=== PATIENT | female | born 1965 | race Caucasian/White ===

== ENCOUNTER 2017-10-08 20:36 | Observation (INO) | payer BC ==
[2017-10-08] MEDS ORDERED: ASPIRIN 81 MG PO STA (20:57)
--- NOTE | 2017-10-08 21:21 | ED ---
Chest Pain HPI - General Chief Complaint: Chest Pain Stated Complaint: HTN, Chest Pain Time Seen by Provider: 10/08/17 20:48 Source: patient, RN notes reviewed Mode of arrival: wheelchair Limitations: no limitations - History of Present Illness Initial Comments: This a 52-year-old female presents emergency Department chief complaint of left- sided chest discomfort, hypertension. 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 Patient states that she was then written a prescription for carotid duplex. She states that she went to have a yesterday was found to be hypertensive. Patient was given a prescription for Norvasc 5 mg twice a day. She states 3 doses so far. Patient states her blood pressure still elevated. Patient states that she was a former smoker denies any known history of hyperlipidemia, diabetes. Patient states that her chest just feels "funny". Patient states that she's never had a stress test in the past. She does not know the results of her carotid duplex. She denies any shortness of breath at times. She did admit that she was just unsure of [place] for skiing and this returned. She has no prior history of DVT or PE. - Related Data Home Medications Medication Instructions Recorded Confirmed amLODIPine [Norvasc] 5 mg PO BID 10/08/17 10/08/17 Allergies Allergy/AdvReac Type Severity Reaction Status Date / Time No Known Allergies Allergy Verified 10/08/17 21:56 Review of Systems ROS Statement: Those systems with pertinent positive or pertinent negative responses have been documented in the HPI. ROS Other: All systems not noted in ROS Statement are negative. EKG Findings - EKG Comments: EKG Findings:: EKG performed at 21:12 normal sinus rhythm with rate of 67 MA 172 QRS 92/QTc/431 Past Medical History Past Medical History: Hypertension History of Any Multi-Drug Resistant Organisms: None Reported Past Surgical History: No Surgical Hx Reported Past Psychological History: No Psychological Hx Reported Smoking Status: Former smoker Past Alcohol Use History: Occasional Past Drug Use History: Marijuana General Exam Limitations: no limitations General appearance: alert, in no apparent distress Neck exam: Present: normal inspection, full ROM. Absent: tenderness, meningismus, lymphadenopathy Respiratory exam: Present: normal lung sounds bilaterally. Absent: respiratory distress, wheezes, rales, rhonchi, stridor, chest wall tenderness Cardiovascular Exam: Present: regular rate, normal rhythm, normal heart sounds. Absent: systolic murmur, diastolic murmur, rubs, gallop, clicks GI/Abdominal exam: Present: soft, normal bowel sounds. Absent: distended, tenderness, guarding, rebound, rigid Neurological exam: Present: alert, oriented X3, CN II-XII intact, reflexes normal. Absent: motor sensory deficit Course Vital Signs 10/08/17 20:40 Temperature 98.5 F Pulse Rate 80 Respiratory 18 Rate Blood Pressure 175/89 O2 Sat by Pulse 98 Oximetry Disposition Clinical Impression: Chest pain Disposition: ADMITTED IP TO THIS HOSP Condition: Stable Referrals: None,Stated [Primary Care Provider] - 1-2 days
[2017-10-08 21:25] LABS: Basophils % (A) 1 %; Eosinophils # (A) 0.1 k/uL (0-0.7); Eosinophils % (A) 2 %; HCT 41.9 % (34.0-46.0); HGB 13.5 gm/dL (11.4-16.0); Lymphocytes # (A) 1.5 k/uL (1.0-4.8); Lymphocytes % (A) 30 %; MCH 28.8 pg (25.0-35.0); MCHC 32.1 g/dL (31.0-37.0); MCV 89.5 fL (80.0-100.0); Mean Platelet Volume 6.7; Monocytes # (A) 0.4 k/uL (0-1.0); Monocytes % (A) 8 %; Neutrophils # (A) 2.8 k/uL (1.3-7.7); Neutrophils % (A) 57 %; Platelet Count 240 k/uL (150-450); RBC 4.68 m/uL (3.80-5.40); RDW 12.8 % (11.5-15.5); WBC 4.9 k/uL (3.8-10.6)
[2017-10-08 21:29] LABS: ALT 25 U/L (9-52); AST 29 U/L (14-36); Alkaline Phosphatase 66 U/L (38-126); Anion Gap 15 mmol/L; Blood Urea Nitrogen 12 mg/dL (7-17); Calcium 10.1 mg/dL (8.4-10.2); Carbon Dioxide 23 mmol/L (22-30); Chloride 104 mmol/L (98-107); Glucose 102 mg/dL (74-99); Lipase 118 U/L (23-300); Sodium 142 mmol/L (137-145); Total Bilirubin 0.6 mg/dL (0.2-1.3); Total Protein 8.2 g/dL (6.3-8.2)
--- NOTE | 2017-10-08 21:33 | XR ---
EXAMINATION TYPE: XR chest 2V DATE OF EXAM: 10/08/2017 COMPARISON: NONE HISTORY: Chest pain and hypertension TECHNIQUE: Frontal and lateral views of the chest are obtained. FINDINGS: There is no focal air space opacity, pleural effusion, or pneumothorax seen. The cardiac silhouette size is within normal limits. The osseous structures are intact. IMPRESSION: No acute cardiopulmonary process.
[2017-10-08 21:34] LABS: D-Dimer <0.17 mg/L FEU (<0.60); INR 1.1 (<1.2); Partial Thromboplastin Time 24.4 sec (22.0-30.0); Prothrombin Time 10.7 sec (9.0-12.0)
[2017-10-08 21:37] LABS: Creatine Kinase 79 U/L (30-135)
[2017-10-08 21:51] LABS: Creatine Kinase MB 0.8 ng/mL (0.0-2.4); Troponin I <0.012 ng/mL (0.000-0.034)
[2017-10-08] MEDS ORDERED: HEPARIN SODIUM,PORCINE 5,000 UNIT/ML 1 ML VIAL IV ONE (22:10)
[2017-10-08] MEDS ORDERED: NITROGLYCERIN SL TABS 0.4 MG TAB SUBLINGUAL PRN (22:10)
[2017-10-08] MEDS ORDERED: HEPARIN SOD,PORK IN 0.45% NACL 25,000 UNIT in 0.45% NACL 1 500ML.BAG IV SCH (22:15)
[2017-10-08] MEDS ORDERED: SODIUM CHLORIDE 0.9% 500 ML IV SCH (23:15)
[2017-10-08] MEDS ORDERED: ALPRAZolam 0.25 MG TAB PO PRN (23:57)
[2017-10-08] MEDS ORDERED: TEMAZEPAM 15 MG CAP PO PRN (23:57)
[2017-10-09 00:15] VITALS: RESP 16
[2017-10-09 04:32] LABS: Basophils % (A) 1 %; Eosinophils # (A) 0.1 k/uL (0-0.7); Eosinophils % (A) 3 %; HCT 40.2 % (34.0-46.0); HGB 12.8 gm/dL (11.4-16.0); Lymphocytes # (A) 1.6 k/uL (1.0-4.8); Lymphocytes % (A) 34 %; MCH 28.7 pg (25.0-35.0); MCHC 31.8 g/dL (31.0-37.0); MCV 90.3 fL (80.0-100.0); Mean Platelet Volume 6.5; Monocytes # (A) 0.4 k/uL (0-1.0); Monocytes % (A) 8 %; Neutrophils # (A) 2.5 k/uL (1.3-7.7); Neutrophils % (A) 52 %; Platelet Count 228 k/uL (150-450); RBC 4.46 m/uL (3.80-5.40); RDW 12.8 % (11.5-15.5); WBC 4.7 k/uL (3.8-10.6)
[2017-10-09 05:11] LABS: Creatine Kinase 61 U/L (30-135)
[2017-10-09 05:23] LABS: Creatine Kinase MB 0.5 ng/mL (0.0-2.4); Troponin I <0.012 ng/mL (0.000-0.034)
--- NOTE | 2017-10-09 05:45 | HP ---
HISTORY AND PHYSICAL CHIEF COMPLAINT: Chest pain. HISTORY OF PRESENT ILLNESS: This 52-year-old woman with a past medical history of recently diagnosed hypertension, not being followed by primary physician in the outpatient setting was seen in her father's cardiology office. The patient was given a prescription of Norvasc. Patient also got a carotid ultrasound done. Today, the patient is complaining of epigastric burning pain subsequently a chest discomfort which was felt in the anterior part of chest, mild to moderate intensity, which radiated to the back and patient came to [facility] and admitted for further evaluation and treatment. There is no history of any fever, rigors. No history of headache, loss of consciousness or seizures. PAST MEDICAL HISTORY: Hypertension, history nicotine dependence. MEDICATIONS: Norvasc 5 mg p.o. b.i.d. ALLERGIES: Allergies are none. FAMILY HISTORY: History of coronary artery disease in the family. SOCIAL HISTORY: Previous history of smoking. No history of alcohol intake. REVIEW OF SYSTEMS: ENT: No diminished hearing or diminished vision. CARDIOVASCULAR SYSTEM: No angina. RESPIRATORY SYSTEM: No cough or hemoptysis. GI: No nausea. : No dysuria. NERVOUS SYSTEM: No numbness or weakness. ALLERGY/IMMUNOLOGY: No asthma or hay fever. MUSCULOSKELETAL: As mentioned earlier. HEMATOLOGY/ONCOLOGY: No history anemia, ENDOCRINE: No history of diabetes or hypothyroidism. CONSTITUTIONAL: As mentioned earlier. DERMATOLOGY: Negative. RHEUMATOLOGY: Negative. PSYCHIATRY: As mentioned earlier. PHYSICAL EXAMINATION: The patient is alert and oriented x3. Pulse is 58. Blood pressure 147/82, respiration 18, temperature 98.5, pulse ox 99% on 2 L. HEENT: Conjunctivae normal. Oral mucosa moist. Neck is no jugular venous distention. No carotid bruit. No lymph node enlargement. CARDIOVASCULAR: S1 and S2 muffled. No S3, no S4. RESPIRATORY: Breath sounds diminished at the bases. A few scattered rhonchi. No crackles. ABDOMEN: Soft, nontender. No mass palpable. LEGS: No edema, no swelling. NERVOUS SYSTEM: Higher functions as mentioned earlier. Moves all 4 limbs. No focal motor or sensory deficits LYMPHATICS: No lymphadenopathy of the neck, axillae or groin. SKIN: No ulcer, rash or bleeding. LABS: CBC within normal limits otherwise glucose 102. ASSESSMENT: 1. Chest pain, possible unstable angina. 2. Hypertension. 3. THC. 4. History of nicotine dependence. RECOMMENDATIONS AND DISCUSSION: In this 52-year-old woman who presented with multiple complex medical issues, will monitor the patient closely, unstable angina protocol. Otherwise, I recommend a cardiology consultation, possible stress test, rule out myocardial infarction. Continue with Norvasc. Monitor blood pressure closely. Otherwise prognosis guarded because of multiple complex medical issues and further recommendations to follow. Discussed with patient, understands and agrees. MMODL / IJN: [id number] /
[2017-10-09 05:59] LABS: Anion Gap 11 mmol/L; Blood Urea Nitrogen 12 mg/dL (7-17); Calcium 9.9 mg/dL (8.4-10.2); Carbon Dioxide 24 mmol/L (22-30); Chloride 104 mmol/L (98-107); Glucose 98 mg/dL (74-99); HDL Cholesterol 81 mg/dL (40-60); Potassium 3.8 mmol/L (3.5-5.1); Sodium 139 mmol/L (137-145); Triglycerides 155 mg/dL (<150)
[2017-10-09 06:05] LABS: Cholesterol 337 mg/dL (<200); LDL Cholesterol,Calculated 225 mg/dL (0-99)
[2017-10-09] MEDS ORDERED: PANTOPRAZOLE 40 MG TABLET PO SCH (07:30)
[2017-10-09] MEDS ORDERED: ASPIRIN 325 MG TAB PO SCH (09:00)
[2017-10-09] MEDS ORDERED: amLODIPine 5 MG TAB PO SCH (09:00)
[2017-10-09] MEDS ORDERED: ASPIRIN 81 MG PO SCH (09:00)
--- NOTE | 2017-10-09 09:59 | ECHOF ---
Referral Reason:chest pain MEASUREMENTS -------- HEIGHT: 160.0 cm WEIGHT: 54.9 kg BP: 132/69 RVIDd: 3.1 cm (< 3.3) IVSd: 1.1 cm (0.6 - 1.1) LVIDd: 4.4 cm (3.9 - 5.3) LVPWd: 1.0 cm (0.6 - 1.1) IVSs: 1.5 cm LVIDs: 2.8 cm LVPWs: 1.4 cm LA Diam: 3.3 cm (2.7 - 3.8) LAESV Index (A-L): 17.30 ml/m Ao Diam: 3.4 cm (2.0 - 3.7) AV Cusp: 1.9 cm (1.5 - 2.6) MV EXCURSION: 17.614 mm (> 18.000) MV EF SLOPE: 62 mm/s (70 - 150) EPSS: 0.6 cm MV E Rodo: 0.91 m/s MV DecT: 237 ms MV A Rodo: 0.70 m/s MV E/A Ratio: 1.30 FINDINGS -------- Sinus rhythm. This was a technically adequate study. The left ventricular size is normal. There is borderline concentric left ventricular hypertrophy. Overall left ventricular systolic function is normal with, an EF between 55 - 60 %. The right ventricle is normal in size. Normal LA size by volume 22+/-6 ml/m2. The right atrium is normal in size. There is mild aortic valve sclerosis. The mitral valve leaflets are mildly thickened. The tricuspid valve appears structurally normal. There is no pulmonic regurgitation present. The aortic root size is normal. Normal inferior vena cava with normal inspiratory collapse consistent with estimated right atrial pre ssure of 5 mmHg. There is no pericardial effusion. CONCLUSIONS -------- 1. Sinus rhythm. 2. This was a technically adequate study. 3. The left ventricular size is normal. 4. There is borderline concentric left ventricular hypertrophy. 5. Overall left ventricular systolic function is normal with, an EF between 55 - 60 %. 6. The right ventricle is normal in size. 7. Normal LA size by volume 22+/-6 ml/m2. 8. The right atrium is normal in size. 9. There is mild aortic valve sclerosis. 10. The mitral valve leaflets are mildly thickened. 11. The tricuspid valve appears structurally normal. 12. There is no pulmonic regurgitation present. 13. The aortic root size is normal. 14. Normal inferior vena cava with normal inspiratory collapse consistent with estimated right atrial pressure of 5 mmHg. 15. There is no pericardial effusion. PHLEBOTOMY SERVICES REPRESENTATIVE: Macey Lehman RDCS
[2017-10-09 10:28] LABS: Creatine Kinase 60 U/L (30-135)
[2017-10-09 10:41] LABS: Creatine Kinase MB 0.4 ng/mL (0.0-2.4); Troponin I <0.012 ng/mL (0.000-0.034)
[2017-10-09] MEDS ORDERED: ACETAMINOPHEN TAB 325 MG TAB PO PRN (15:41)
[2017-10-09 16:28] VITALS: BP 116/69; PULSE 65; TEMP 97.1
--- NOTE | 2017-10-09 19:01 | CONS ---
CONSULTATION This is a 52-year-old lady with a diagnosis of hypertension. Apparently, this was recently diagnosed. She actually came into the office with her father, who happens to be a patient of mine and was found to have elevated blood pressure. She was advised to be on Norvasc and a carotid Doppler was also performed for her in the office and there is no evidence of any significant obstructive disease in the internal carotid arteries bilaterally and vertebral flow in the antegrade direction. However, she went home, felt a bit anxious. Her blood pressure was elevated and she came into the hospital. She also complained of some chest discomfort, the quality of which is very atypical. She came into the hospital yesterday in the evening. She had a left-sided discomfort, sharp in nature, not necessarily suggestive of angina, seemed more or less musculoskeletal, but there was a significant amount of anxiety with it. Her symptoms have resolved. She feels better today. An echocardiogram has been performed, revealed concentric mild concentric LVH with a preserved systolic function. She is resting comfortably without symptoms. PAST MEDICAL HISTORY: Recent diagnosis of hypertension. No other major medical problems. No surgical history. SOCIAL HISTORY: Patient is a former smoker. She does not smoke now. She used to use marijuana in the past. ALLERGIES: None. MEDICATIONS: Are Norvasc, which was recently started, 1 tablet daily. EXAMINATION: Blood pressure was 130/70, pulse rate was 74 per minute, regular. HEENT: Unremarkable. Fundus was not examined by me. Neck is supple. No JVD. I do not hear a carotid bruit. There is no thyromegaly. Heart reveals S1, S2 heard normally without a rub, murmur or gallop. Lungs are clear. Abdomen is soft, nontender. Lower extremities reveal normal pulses, no edema. Central nervous system is normal. EKG revealed sinus mechanism, no acute changes. LABORATORY DATA: Revealed unremarkable troponins. IMPRESSION: 1. Accelerated hypertension which is now under good control. 2. Atypical chest pain. 3. Probably an element of anxiety. RECOMMENDATIONS: I am recommending that we add a small dose of beta hoda after her stress test. She will have a stress echo and then I will add a beta hoda after that and if the stress echo is normal, we will discharge her today. Otherwise, based on clinical course tomorrow, will increase activity. There is evidence of some concentric LVH suggesting that she may have had hypertension for some time. Will optimize BP control, perform a stress echo and she can be discharged if these are normal. Discussed my thoughts in detail with the patient. Thank you very much for the consult. MARY / LOLA: [id number] /
--- NOTE | 2017-10-09 20:25 | DS ---
DISCHARGE SUMMARY DATE OF SERVICE: 10/09/2004. FINAL DIAGNOSES: 1. Chest pain, possibly musculoskeletal. Negative stress echo apparently. 2. Hypertension. 3. Hyperlipidemia. 4. Hypertriglyceridemia. 5. History of THC. 6. History of nicotine dependence. DISCHARGE DISPOSITION: The patient will be discharged in stable condition with guarded prognosis. HISTORY OF PRESENT ILLNESS: This 52-year-old woman with a past medical history of multiple medical problems being followed by no primary physician as an outpatient was admitted with chest pain and hypertension. The patient was treated symptomatically, myocardial infarction ruled out. Cardiology performed a stress echo. The final report is pending at this time. The patient will discharged after clearance from Cardiology if the stress echo is normal. EXAM: Vitals are stable. CARDIOVASCULAR: S1, S2 muffled. ABDOMEN: Soft. NERVOUS SYSTEM: Nonfocal. Discharge diet is cardiac, low-fat, low-cholesterol. Activity limited until followup. Follow up with Dr. Souza in 2-3 days. Follow up with Dr. Schmidt in the outpatient setting. MEDICATIONS: 1. Norvasc 5 mg p.o. b.i.d. 2. Aspirin 81 mg p.o. daily. 3. Lipitor 20 mg. 4. Metoprolol 25 mg p.o. daily. Once again, the patient will be discharged in stable condition with a guarded prognosis. MMODL / IJN: [id number] /
--- NOTE | 2017-10-10 10:14 | ECHOS ---
STRESS ECHOCARDIOGRAM DATE OF SERVICE: 10/09/2017 INDICATIONS: Chest pain. MEDICATIONS: BASELINE HEART RATE: 68 BASELINE BLOOD PRESSURE: 138/78 MAXIMUM HEART RATE: 157 MAXIMUM BLOOD PRESSURE: 149/83 85% MPHR: 141 100% MPHR: 166 METS: 12.1 MAXIMUM STAGE REACHED: IV TOTAL EXERCISE TIME: 11 minutes CLINICAL INFORMATION: Patient was exercised for a total period of 11 minutes. The peak heart rate of 157 was achieved. Maximum blood pressure 149/83 mmHg was noted. The resting EKG shows normal sinus rhythm with normal MA interval and QRS duration and normal ST-T waves. No ST- segment depression suggestive of ischemia is noted. The baseline echocardiographic images reveals normal left ventricular chamber size with normal left ventricular systolic function. In the immediate postexercise period, normal increase in the wall thickness and contractility is noted. FINAL IMPRESSION: 1. This stress echocardiographic study is negative for stress-induced ischemia. 2. EKG portion of the stress test is not suggestive of ischemia. 3. Patient's exercise tolerance is normal. MMODL / IJN: [id number] /
== END 2017-10-09 18:25 | disposition home or self-care (01) ==
LOC: EC 20:36 → 6SEL 22:12
PROVIDERS: ADMIT Hospitalist; ATTEND Hospitalist
DX: R07.89 Other chest pain (principal); I10 Essential (primary) hypertension; E78.5 Hyperlipidemia, unspecified; E78.1 Pure hyperglyceridemia; Z86.59 Personal history of other mental and behavioral disorders; Z87.891 Personal history of nicotine dependence; Z82.49 Family history of ischemic heart disease and other diseases of the circulatory system
CPT/HCPCS: 36415; 93005; 93017; 93306; 93350; 85379; 80061; 80053; 80048; 82550 ×2; 82553 ×2; 83690; 83735; 84484 ×2; 85025 ×2; 85610; 85730 ×2; 71046; 99285; 96365; 96376; G0378 ×2; J1644 ×2

== ENCOUNTER → 2021-12-21 | Outpatient (CLI) | payer OTHER ==
--- NOTE | 2021-12-21 12:28 | XR ---
EXAMINATION TYPE: XR Hip Complete LT DATE OF EXAM: 12/21/2021 COMPARISON: NONE HISTORY: Pain TECHNIQUE: 2 views submitted FINDINGS: There is no evidence of erosive change or acute fracture. Small lucency along the inferior margin of the acetabulum with mild concentric narrowing of the joint. IMPRESSION: 1. Mild to moderate arthropathy with no erosive changes. 2. Lucency along the lower margin of the acetabulum upper margin of the inferior pubic ramus. Recomme nd CT scan pelvis to exclude osseous lesion.
== END | disposition home or self-care (01) ==
LOC: RADXRMAIN 11:51
PROVIDERS: ATTEND Family Medicine
DX: M12.852 Other specific arthropathies, not elsewhere classified, left hip (principal); M25.552 Pain in left hip
CPT/HCPCS: 73502